=== PATIENT | female | born 1975 | race African-American/Black ===

== ENCOUNTER 2018-03-03 20:41 | Emergency (ER) | payer OTHER ==
[~2018-03-03] VITALS: Ht 160 cm; Wt 51.0 kg
[2018-03-03 21:27] LABS: BASOPHIL (%) 0.5 % (0-1); EOSINOPHIL (%) 1.5 % (0-5); EOSINOPHIL COUNT 0.1 K/uL (0-0.3); HEMATOCRIT 38.9 % (36.0-46.0); HEMOGLOBIN 14.5 G/DL (11.9-15.5); IMMATURE GRANULOCYTE (%) 0.2 % (0.0-0.7); LYMPHOCYTE (%) 35.8 % (15-42); LYMPHOCYTE COUNT 2.9 K/uL (1.0-2.8); MCH 29.9 PG (29.0-34.0); MCHC 37.3 G/DL (30.0-36.0); MCV 80.2 FL (83-99); MONOCYTE (%) 6.2 % (3-12); MONOCYTE COUNT 0.5 K/uL (0-0.8); NEUTROPHIL (%) 55.8 % (45-76); NEUTROPHIL COUNT 4.5 K/uL (1.8-6.4); PLATELET COUNT 181 K/uL (156-360); RBC DIS.WIDTH-CV 13.4 % (11.8-14.6); RBC DIS.WIDTH-SD 39.2 % (39-53); RED BLOOD COUNT 4.85 M/uL (3.80-5.20); WHITE BLOOD COUNT 8.1 K/uL (4.1-10.2)
[2018-03-03 21:37] LABS: INTER. NORMALIZED RATIO 1.1
[2018-03-03 21:39] LABS: ALBUMIN 4.9 g/dL (3.2-4.8); CHLORIDE 102 mEq/L (99-109); POTASSIUM 3.5 mEq/L (3.7-5.4); SODIUM 136 mEq/L (136-147)
[2018-03-03 21:40] LABS: AMYLASE 104 IU/L (1-118); PTT 31.8 SEC (25-37)
[2018-03-03 21:41] LABS: GLUCOSE 133 mg/dL (70-99); TOTAL PROTEIN 8.1 g/dL (6.4-8.3)
[2018-03-03 21:43] LABS: TOTAL BILIRUBIN 0.7 mg/dL (0.0-1.0)
[2018-03-03 21:44] LABS: SERUM ETHYL ALCOHOL < 10 mg/dL
[2018-03-03 21:45] LABS: ALKALINE PHOSPHATASE 108 IU/L (3-129); CREATININE 0.8 mg/dL (0.6-1.3)
[2018-03-03 21:46] LABS: AST (GOT) 17 IU/L (2-34); GFR ESTIMATE (CALCULATED) > 59 mL/min/; UREA NITROGEN (BUN) 9 mg/dL (9-23)
[2018-03-03 21:48] LABS: ALT (GPT) 19 IU/L (3-49); LIPASE 26 U/L (1.0-51.0); TROP-I INTERPRETATION NEGATIVE; TROPONIN-I < 0.01 ng/mL (0.0-0.30)
[2018-03-03 21:54] LABS: QUANTITATIVE HCG < 4.0 MIU/ML
[2018-03-03] MEDS ORDERED: HYDROCHLOROTHIA25 MG PO (23:15)
[2018-03-04 00:24] LABS: APPEARANCE CLEAR ((CLEAR)); BILIRUBIN NEGATIVE; BLOOD SMALL; COLOR STRAW ((YELLOW)); GLUCOSE (STRIP) NEGATIVE; KETONES NEGATIVE; LEUKOCYTES LARGE; NITRITE NEGATIVE; PROTEIN (STRIP) NEGATIVE; SPECIFIC GRAVITY 1.028 (1.000-1.030); UROBILINOGEN 0.2 MG/DL (0.2-1.0)
[2018-03-04 00:31] LABS: BACTERIA NONE SEEN /HPF; EPITHELIAL CELLS 1+ /HPF; MUCUS TRACE /LPF; UCUL ADDED? YES
[2018-03-04 00:32] LABS: AMPHETAMINE NEGATIVE (500 ng/mL); BARBITURATES NEGATIVE (200 ng/mL); BENZODIAZEPINES NEGATIVE (150 ng/mL); BUPRENORPHINE NEGATIVE (10 ng/mL); COCAINE NEGATIVE (150 ng/mL); METHADONE NEGATIVE (200 ng/mL); METHAMPHETAMINE NEGATIVE (500 ng/mL); OPIATES (MORPHINE) NEGATIVE (100 ng/mL); OXYCODONE NEGATIVE (100 ng/mL); PHENCYCLIDINE NEGATIVE (25 ng/mL); PROPOXYPHENE NEGATIVE (300 ng/mL); THC CANNABINOIDS PRESUMPTIVE POSITIVE (50 ng/mL); TRICYCLIC ANTIDEPRESSANTS NEGATIVE (300 ng/mL)
[2018-03-04] MEDS ORDERED: HYDROCHLOROTH12.5 M3 PO (00:58)
[2018-03-04] MEDS ORDERED: NORVASC5 MG PO (00:58)
[2018-03-04] MEDS ORDERED: AUGMENTIN875 MG PO (00:58)
[2018-03-04 01:35] VITALS: BP 136/97
== END 2018-03-04 01:30 | disposition left against medical advice (07) ==
LOC: EME 20:41 → CANRESERV 03-04 00:55 → ENRESERV 03-04 00:55 → EME 03-04 01:30
PROVIDERS: Physician Assistant
DX: I63.9 Cerebral infarction, unspecified (principal); N39.0 Urinary tract infection, site not specified; I10 Essential (primary) hypertension; Z91.14 Patient's other noncompliance with medication regimen; F17.200 Nicotine dependence, unspecified, uncomplicated
CPT/HCPCS: 70450; 70496; 70498; 80047; 80053; 81003; 82150; 83690; 84484; 84702; 84999; 85025; 85027; 85610; 85730; 86850; 86900; 86901; 87086; 93005; 99281; 99285; G0480; J0780; J1200; J7030